=== PATIENT | female | born 2000 | race Two or more races ===

== ENCOUNTER 2020-06-23 17:02 | Emergency (ER) | payer MEDICAID ==
[~2020-06-23] VITALS: Ht 157.5 cm; Wt 62.0 kg
[2020-06-23 17:11] VITALS: BP 116/67
[2020-06-23] MEDS ORDERED: IBUPROFEN 600MG TABLET PO ONE (18:00)
[2020-06-23] MEDS ORDERED: BACITRACIN ZINC OINT UDPKT TOP ONE (18:00)
[2020-06-23] MEDS ORDERED: TRAMADOL 50MG TABLET PO ONE (18:15)
== END 2020-06-23 18:20 | disposition home or self-care (01) ==
LOC: ER 17:27
DX: S00.83XA Contusion of other part of head, initial encounter (principal); S00.81XA Abrasion of other part of head, initial encounter; V47.5XXA Car driver injured in collision with fixed or stationary object in traffic accident, initial encounter; Y93.89 Activity, other specified; Y92.410 Unspecified street and highway as the place of occurrence of the external cause
CPT/HCPCS: 99283

== ENCOUNTER 2020-07-24 10:38 | Emergency (ER) | payer MEDICAID ==
[~2020-07-24] VITALS: Ht 157.5 cm; Wt 76.0 kg
[2020-07-24 10:48] VITALS: BP 113/67
== END 2020-07-24 11:56 | disposition left against medical advice (07) ==
LOC: ER 10:38
DX: R10.9 Unspecified abdominal pain (principal); Z53.21 Procedure and treatment not carried out due to patient leaving prior to being seen by health care provider
CPT/HCPCS: 93005